=== PATIENT | female | born 1960 | race Caucasian/White ===

== ENCOUNTER → 2018-03-27 | Outpatient (CLI) | payer OTHER ==
[~2018-03-27] MED LIST: BIFI4CAP PO; CALC1CAP8 PO; CHOL200024 PO; CRAN500C PO; LEVO100T5 PO; MAGN400T7 PO; MELO7.5T31 PO; OMEG-69 PO; TURM538C PO; VALA500T PO; [UNRECOGNIZED DRUG - OTHER] PO
[2018-03-27 14:41] LABS: BASOPHILS # (AUTO) 0.03 x10^3/uL (0-0.1); BASOPHILS % (AUTO) 1 % (0-1); EOSINOPHILS # (AUTO) 0.07 x10^3/uL (0-0.4); EOSINOPHILS % (AUTO) 2 % (1-7); LYMPHOCYTES # (AUTO) 0.87 x10^3/uL (1-3.4); LYMPHOCYTES % (AUTO) 19 % (22-44); MD NO; MEAN CORPUSCULAR HEMOGLOBIN 31.7 pg (27.0-34.8); MEAN CORPUSCULAR HGB CONC 34.3 g/dL (32.4-35.8); MEAN CORPUSCULAR VOLUME 92.4 fL (80-100); MEAN PLATELET VOLUME 8.9 fL (7.4-10.4); MONOCYTES # (AUTO) 0.35 x10^3/uL (0.2-0.8); MONOCYTES % (AUTO) 8 % (2-9); NEUTROPHILS # (AUTO) 3.18 x10^3/uL (1.8-6.8); NEUTROPHILS % (AUTO) 71 % (42-75); PLATELET COUNT 180 x10^3/uL (130-400); RED BLOOD COUNT 4.68 x10^6/uL (3.82-5.3); RED CELL DISTRIBUTION WIDTH 13.6 % (9.6-15.2)
[2018-03-27 14:42] LABS: MICROSCOPIC NOT IND
[2018-03-27 14:44] LABS: ALBUMIN 3.7 g/dL (3.4-5.0); CHLORIDE 107 mmol/L (98-107)
[2018-03-27 14:55] LABS: ALANINE AMINOTRANSFERASE 65 U/L (12-78); ALKALINE PHOSPHATASE 94 U/L (45-117); ANION GAP 4 mmol/L (5-15); BILIRUBIN,TOTAL 1.2 mg/dL (0.2-1.0); CALCIUM 9.4 mg/dL (8.5-10.1); CREATININE 0.83 mg/dL (0.55-1.02); TOTAL PROTEIN 7.1 g/dL (6.4-8.2)
[2018-03-27 15:03] LABS: CULTURE INDICATED? NO
== END | disposition home or self-care (01) ==
LOC: STAR 13:29
PROVIDERS: ATTEND Orthopaedic Surgery
DX: Z01.818 Encounter for other preprocedural examination (principal)
CPT/HCPCS: 36415; 80053; 81003; 85025; 87081; 93005

== ENCOUNTER 2018-04-02 05:48 | Inpatient (IN) | payer OTHER ==
[~2018-04-02] VITALS: Ht 162.6 cm; Wt 67.8 kg
[2018-04-02] MEDS ORDERED: LACTATED RINGERS 1,000 ML IV SCH (06:05)
[2018-04-02] MEDS ORDERED: TRANEXAMIC ACID 100 MG/ML, 10ML ONE (06:34)
[2018-04-02] MEDS ORDERED: ROPIvacaine/PF 0.2%, 20 ML ONE (06:34)
[2018-04-02] MEDS ORDERED: KETOROLAC 60 MG/2 ML ONE (06:34)
[2018-04-02] MEDS ORDERED: VANCOMYCIN 1,000 MG ONE (06:35)
[2018-04-02] MEDS ORDERED: EPINEPHRINE 1 MG/ML, 1ML ONE (06:35)
[2018-04-02] MEDS ORDERED: SODIUM CHLORIDE 0.9% 100 ML ONE (06:35)
[2018-04-02] MEDS ORDERED: MIDAZOLAM 1 MG/ML, 2ML ONE (06:43)
[2018-04-02] MEDS ORDERED: FENTANYL PF 100 MCG/2ML ONE ×2 (06:43→09:38)
[2018-04-02] MEDS ORDERED: PROPOFOL 50 ML ONE ×2 (06:43→08:13)
[2018-04-02] MEDS ORDERED: ONDANSETRON ODT 8 MG PO ONE (07:00)
[2018-04-02] MEDS ORDERED: GABAPENTIN 300 MG CAPSULE PO ONE (07:00)
[2018-04-02] MEDS ORDERED: ACETAMINOPHEN 500 MG TABLET PO ONE (07:00)
[2018-04-02] MEDS ORDERED: PHENYLEPHRINE 10 MG/ML ONE (07:10)
[2018-04-02] MEDS ORDERED: METOCLOPRAMIDE 5 MG/ML, 2ML IV PRN (08:00)
[2018-04-02] MEDS ORDERED: LABETALOL 5MG/ML, 20ML IV PRN (08:00)
[2018-04-02] MEDS ORDERED: OXYcodone 5 MG/5 ML ORAL.SOL UDC PO PRN (08:00)
[2018-04-02] MEDS ORDERED: SCOPOLAMINE PATCH, 1.5MG PATCH.TD72 TD PRN (08:00)
[2018-04-02] MEDS ORDERED: EPHEDRINE 50 MG/ML, 1ML IM PRN (08:00)
[2018-04-02] MEDS ORDERED: DIPHENHYDRAMINE 50 MG/ML, 1ML IVPush PRN (08:00)
[2018-04-02] MEDS ORDERED: ONDANSETRON ODT 8 MG PO PRN (08:00)
[2018-04-02] MEDS ORDERED: MIDAZOLAM 1 MG/ML, 2ML IV PRN (08:00)
[2018-04-02] MEDS ORDERED: DIAZEPAM 5 MG/ML, 2ML IVPush PRN (08:00)
[2018-04-02] MEDS ORDERED: PROMETHAZINE 25 MG/ML, 1ML IV PRN (08:00)
[2018-04-02] MEDS ORDERED: FENTANYL PF 100 MCG/2ML IV PRN (08:00)
[2018-04-02] MEDS ORDERED: MEPERIDINE/PF 25MG/0.5ML IVPush PRN (08:00)
[2018-04-02] MEDS ORDERED: HYDROmorphone 1 MG/ML, 1ML IV PRN ×2 (08:00→09:00)
[2018-04-02] MEDS ORDERED: MORPHINE SULFATE 4 MG/ML, 1ML IVPush PRN (08:00)
[2018-04-02] MEDS ORDERED: ALBUTEROL/IPRATROPIUM 2.5MG/0.5MG, 3 ML NPPB PRN (08:00)
[2018-04-02] MEDS ORDERED: CEFAZOLIN 1,000 MG ONE (08:08)
[2018-04-02] MEDS ORDERED: PROPOFOL 10 MG/ML, 20ML ONE (08:08)
[2018-04-02] MEDS ORDERED: ONDANSETRON 2MG/ML, 2ML ONE (08:08)
[2018-04-02] MEDS ORDERED: DEXAMETHASONE 4 MG/ML, 1ML ONE (08:08)
[2018-04-02] MEDS: D5%-0.45% NACL 1,000 ML IV SCH ×2 (08:59→16:59)
[2018-04-02] MEDS ORDERED: DIPHENHYDRAMINE 50 MG CAPSULE PO PRN (09:00)
[2018-04-02] MEDS ORDERED: BISACODYL 10 MG SUPP PR PRN (09:00)
[2018-04-02] MEDS ORDERED: ALUMINUM/MAG/SIMETHICONE 30 ML UDC PO PRN (09:00)
[2018-04-02] MEDS ORDERED: ONDANSETRON 4 MG TABLET PO PRN (09:00)
[2018-04-02] MEDS ORDERED: ONDANSETRON 2MG/ML, 2ML IV PRN (09:00)
[2018-04-02] MEDS ORDERED: PROMETHAZINE 12.5 MG SUPP PR PRN (09:00)
[2018-04-02] MEDS ORDERED: MAGNESIUM HYDROXIDE 8%, 30ML UDC PO PRN (09:00)
[2018-04-02] MEDS ORDERED: SENNA/DOCUSATE TABLET PO PRN (09:00)
[2018-04-02] MEDS ORDERED: ACETAMINOPHEN 650 MG/20.3 ML UDC PO PRN (09:00)
[2018-04-02] MEDS ORDERED: ZOLPIDEM 5MG TABLET PO PRN (09:00)
[2018-04-02] MEDS ORDERED: HYDROcodone/APAP 10/325 MG TABLET PO PRN (09:00)
[2018-04-02] MEDS ORDERED: DIAZEPAM 5 MG TABLET PO PRN (09:00)
[2018-04-02] MEDS: LEVOTHYROXINE 100 MCG TABLET PO SCH (09:00)
[2018-04-02] MEDS ORDERED: PROMETHAZINE 25 MG/ML, 1ML IM PRN (09:00)
[2018-04-02] MEDS ORDERED: OXYcodone IR 5MG TABLET PO PRN (09:00)
[2018-04-02] MEDS ORDERED: TRANEXAMIC ACID 1,000 MG in SODIUM CHLORIDE 0.9% 100 ML IVPB ONE (09:30)
[2018-04-02] MEDS ORDERED: OXYcodone 5 MG/5 ML ORAL.SOL UDC ONE (09:39)
[2018-04-02] MEDS: TAMSULOSIN 0.4 MG CAP.ER.24H PO SCH (12:18)
[2018-04-02] MEDS: MULTIVITAMINS/MINERALS TABLET PO SCH (12:19)
[2018-04-02] MEDS: DOCUSATE 100 MG CAPSULE PO SCH ×2 (12:19→22:00)
[2018-04-02 12:28] VITALS: BP 105/62
[2018-04-02 14:00] VITALS: BP 107/55
[2018-04-02] MEDS: CEFAZOLIN PMX 2GM/50ML 50 ML IVPB SCH ×2 (15:31→23:19)
[2018-04-02] MEDS: ASPIRIN 81 MG TABLET EC PO SCH (17:39)
[2018-04-02 21:18] VITALS: BP 95/53
[2018-04-03] VITALS: BP 92/45
[2018-04-03] MEDS: D5%-0.45% NACL 1,000 ML IV SCH (01:42)
[2018-04-03 04:10] VITALS: BP 104/50
[2018-04-03] MEDS ORDERED: DEXAMETHASONE 4 MG/ML, 1ML IVPush SCH (06:00)
[2018-04-03] MEDS: ASPIRIN 81 MG TABLET EC PO SCH (06:40)
[2018-04-03 06:54] VITALS: BP_SYST 86; BP_SYST 93; BP_DIAS 56; BP_DIAS 60
[2018-04-03] MEDS: TAMSULOSIN 0.4 MG CAP.ER.24H PO SCH (08:02)
[2018-04-03] MEDS: MULTIVITAMINS/MINERALS TABLET PO SCH (08:02)
[2018-04-03] MEDS: DOCUSATE 100 MG CAPSULE PO SCH (08:03)
[2018-04-03] MEDS ORDERED: KETOROLAC 30 MG/1 ML IV SCH (09:00)
[2018-04-03] MEDS: LEVOTHYROXINE 100 MCG TABLET PO SCH (09:41)
[2018-04-03] MEDS ORDERED: OXYC5TAB3 PO (11:54)
== END 2018-04-03 13:50 | disposition home or self-care (01) | DRG 470 ==
LOC: ORIP 05:48 → 4NOR 10:07 → DCLOUNGE 04-03 13:35
PROVIDERS: ADMIT Orthopaedic Surgery; ATTEND Orthopaedic Surgery
PROC: 0SRB06A Replacement of Left Hip Joint with Oxidized Zirconium on Polyethylene Synthetic Substitute, Uncemented, Open Approach (ICD-10-PCS; principal; 2018-04-02 07:30)
DX: M16.12 Unilateral primary osteoarthritis, left hip (principal); E03.9 Hypothyroidism, unspecified; M24.152 Other articular cartilage disorders, left hip; M21.952 Unspecified acquired deformity of left thigh
CPT/HCPCS: 36415; 72170; 85014; 85018; 86850; 86900; C1713; J0171; J0690; J1100; J1885; J2250; J2405; J2704; J2795; J3010; J3370; Q0162; C1776; J2370; J7120